=== PATIENT | male | born 1960 | race African-American/Black ===

== ENCOUNTER 2021-10-14 09:08 | Observation (INO) | payer OTHER ==
[2021-10-14] MEDS ORDERED: MAG HYDROX/AL HYDROX/SIMETH 30 ML UNIT-DOSE CUP PO ONE (10:28)
[2021-10-14 10:30] LABS: BASO % 1.2 % (0-2.0); EOS % 7.7 % (0-4.5); HEMATOCRIT 44.9 % (35.4-49); HEMOGLOBIN 15.1 GM/dL (11.7-16.9); LYMPH % 35.1 % (8-40); MCH 29.4 pg (25.7-33.7); MCHC 33.5 g/dl (32.0-35.9); MEAN CELL VOLUME 87.8 fl (80-96); MEAN PLT VOLUME 8.8 fl (7.5-11.1); MONO % 11.1 % (3.8-10.2); NEUT % 44.9 % (42.8-82.8); PLATELET COUNT 208 10^3/uL (134-434); RBC 5.12 M/mm3 (4.00-5.60); RDW 14.7 % (11.9-15.9); WHITE BLOOD COUNT 7.6 K/mm3 (4.0-10.0)
[2021-10-14] MEDS ORDERED: MAG HYDROX/AL HYDROX/SIMETH 30 ML UNIT-DOSE CUP ONE (10:39)
[2021-10-14] MEDS ORDERED: FAMOTIDINE/PF 20 MG in SODIUM CHLORIDE 50 ML IVPB ONE (10:45)
[2021-10-14 10:51] LABS: CALCIUM 9.8 mg/dL (8.5-10.1)
[2021-10-14 10:52] LABS: ALBUMIN 4.2 g/dl (3.4-5.0); BLOOD UREA NITROGEN 19.4 mg/dL (7-18)
[2021-10-14 10:56] LABS: BILIRUBIN,TOTAL 0.4 mg/dL (0.2-1); TOT PROT 7.4 g/dl (6.4-8.2)
[2021-10-14 11:01] LABS: CREATININE 1.2 mg/dL (0.55-1.3)
[2021-10-14] MEDS ORDERED: FAMOTIDINE 10 MG/ML VIAL IVPB ONE (11:08)
[2021-10-14 16:37] VITALS: BMI 39.1
[2021-10-14] MEDS ORDERED: ACETAMINOPHEN 325 MG TABLET (FP) PO PRN (17:48)
[2021-10-14] MEDS ORDERED: ONDANSETRON 4 MG/2 ML VIAL IVPUSH PRN (17:48)
[2021-10-14] MEDS: ATORVASTATIN CA 40 MG TABLET (FP) PO SCH (21:28)
[2021-10-14] MEDS ORDERED: PATIENT'S OWN MEDICATION (NON-FORMULARY) (Olmesartan Medoxomil [Olmesartan Medoxomil] 5 MG PO SCH (22:00)
[2021-10-14] MEDS ORDERED: NAPROXEN 500 MG TABLET PO SCH (22:00)
[2021-10-15 07:14] LABS: BLOOD UREA NITROGEN 16.1 mg/dL (7-18); CALCIUM 9.3 mg/dL (8.5-10.1)
[2021-10-15 07:17] LABS: CREATININE 1.2 mg/dL (0.55-1.3)
[2021-10-15] MEDS: amLODIPine BESYLATE 5 MG TABLET (FP) PO SCH (10:40)
[2021-10-15] MEDS: FOLIC ACID 1 MG TABLET (FP) PO SCH (10:40)
[2021-10-15] MEDS: CYCLOBENZAPRINE HCL 10 MG TABLET (FP) PO SCH (10:40)
[2021-10-15] MEDS: ASPIRIN 81 MG CHEWABLE TABLETS PO SCH (10:40)
[2021-10-15] MEDS: ATORVASTATIN CA 40 MG TABLET (FP) PO SCH (21:31)
[2021-10-16 07:15] LABS: BASO % 1.2 % (0-2.0); EOS % 6.1 % (0-4.5); HEMATOCRIT 42.9 % (35.4-49); HEMOGLOBIN 14.3 GM/dL (11.7-16.9); MCH 29.6 pg (25.7-33.7); MCHC 33.4 g/dl (32.0-35.9); MEAN CELL VOLUME 88.9 fl (80-96); MEAN PLT VOLUME 9.3 fl (7.5-11.1); MONO % 9.9 % (3.8-10.2); NEUT % 43.8 % (42.8-82.8); PLATELET COUNT 183 10^3/uL (134-434); RBC 4.82 M/mm3 (4.00-5.60); RDW 15.2 % (11.9-15.9); WHITE BLOOD COUNT 7.6 K/mm3 (4.0-10.0)
[2021-10-16 07:43] LABS: CALCIUM 9.4 mg/dL (8.5-10.1)
[2021-10-16 07:44] LABS: BLOOD UREA NITROGEN 16.1 mg/dL (7-18)
[2021-10-16 07:47] LABS: CREATININE 1.2 mg/dL (0.55-1.3)
[2021-10-16] MEDS: ASPIRIN 81 MG CHEWABLE TABLETS PO SCH (09:14)
[2021-10-16] MEDS: CYCLOBENZAPRINE HCL 10 MG TABLET (FP) PO SCH (09:14)
[2021-10-16] MEDS: amLODIPine BESYLATE 5 MG TABLET (FP) PO SCH (09:14)
[2021-10-16] MEDS: FOLIC ACID 1 MG TABLET (FP) PO SCH (09:14)
[2021-10-16] MEDS ORDERED: SODIUM ZIRCONIUM CYCLOSILICATE (LOKELMA) 5 GM PACKET PO SCH ×3 (10:00→13:30)
[2021-10-16] MEDS ORDERED: SODIUM CHLORIDE 0.45% 1,000 ML IV SCH (13:30)
[2021-10-16 16:09] VITALS: BP 130/68; PULSE 75; TEMP 98.4
== END 2021-10-16 18:21 | disposition home or self-care (01) ==
LOC: JER 09:08 → JERBED 12:10 → J4W 15:20
PROVIDERS: ADMIT Internal Medicine
PROC: 3E033GC Introduction of Other Therapeutic Substance into Peripheral Vein, Percutaneous Approach (ICD-10-PCS; principal; 2021-10-14)
DX: R07.89 Other chest pain (principal); R73.03 Prediabetes; E87.5 Hyperkalemia; I10 Essential (primary) hypertension; E78.5 Hyperlipidemia, unspecified; F17.210 Nicotine dependence, cigarettes, uncomplicated; Z29.8 Encounter for other specified prophylactic measures; E66.9 Obesity, unspecified; Z68.39 Body mass index [BMI] 39.0-39.9, adult
CPT/HCPCS: 36415; 71046-TC-FY; 71275-TC; 80048; 80053; 80061; 82962; 83036; 83690; 84443; 84484; 85025; 86850; 86900; 86901; 93005; 93010; 93306-TC; 99285-25; C9803-CS; G0378; Q9967; U0003; U0005